=== PATIENT | female | born 1965 | race Caucasian/White ===

== ENCOUNTER 2021-07-23 14:29 | Emergency (ER) | payer OTHER ==
[~2021-07-23] VITALS: Ht 170.2 cm; Wt 70.8 kg
--- NOTE | 2021-07-23 14:55 | NUR ---
Dr Akins at the bedside for MSE.
[2021-07-23] MEDS ORDERED: ASPIRIN 325 MG TABLET PO ONE (15:00)
[2021-07-23] MEDS ORDERED: IV NORMAL SALINE 500 ML BAG IV ONE (15:00)
[2021-07-23] MEDS ORDERED: ASPIRIN 325 MG TABLET ONE (15:04)
[2021-07-23 15:24] LABS: HEMATOCRIT 36.4 % (31.2-41.9); MEAN CORPUSCULAR HEMOGLOBIN 31.6 uug (24.7-32.8); MEAN CORPUSCULAR VOLUME 93.2 fL (75.5-95.3); PLATELET COUNT (AUTO) 187 K/uL (179-408)
[2021-07-23 15:48] LABS: ALANINE AMINOTRANSFERASE 32 U/L (14-59); ALKALINE PHOSPHATASE 93 U/L (50-136); ASPARTATE AMINOTRANSFERASE 15 U/L (15-37); BILIRUBIN,DIRECT 0.3 mg/dL (0.0-0.2); CARBON DIOXIDE 26 mmol/L (21-32); CHLORIDE 101 mmol/L (98-107); CREATININE 0.8 mg/dL (0.6-1.3); GLUCOSE 92 mg/dL (74-106); POTASSIUM 4.2 mmol/L (3.5-5.1); TOTAL PROTEIN, SERUM 7.4 g/dL (6.4-8.2); UREA NITROGEN, BLOOD 11 mg/dL (7-18)
--- NOTE | 2021-07-23 15:50 | NUR ---
Pt pulled her IV line out. Catheter intact and site benign. Pressure and 4x4 gauze applied to site. No bleeding noted.
--- NOTE | 2021-07-23 15:54 | NUR ---
Patient eloped from facility. ER physician notified.
== END 2021-07-23 15:56 | disposition left against medical advice (07) ==
LOC: ER 14:29
DX: R07.9 Chest pain, unspecified (principal); R79.1 Abnormal coagulation profile; R07.81 Pleurodynia; E03.9 Hypothyroidism, unspecified; Z86.73 Personal history of transient ischemic attack (TIA), and cerebral infarction without residual deficits; Z87.891 Personal history of nicotine dependence; I10 Essential (primary) hypertension; R94.31 Abnormal electrocardiogram [ECG] [EKG]
CPT/HCPCS: 36415; 71045; 80048; 80076; 83880; 84484; 85025; 85379; 85730; 93005; 96360; 99285; J7040; A4663